=== PATIENT | female | born 1980 | race Caucasian/White ===

== ENCOUNTER 2017-10-09 12:19 | Emergency (ER) | payer OTHER ==
--- NOTE | 2017-10-09 13:27 | ER Document Report ---
ED Medical Screen (RME) - General Chief Complaint: Abdominal Pain Stated Complaint: ABDOMINAL PAIN Time Seen by Provider: 10/09/17 13:25 Notes: nausea, ruq pain since this am. no abd surgeries TRAVEL OUTSIDE OF THE [place] IN LAST 30 DAYS: No - Related Data Allergies/Adverse Reactions: morphine Allergy (Verified 10/09/17 13:06) oseltamivir [From Tamiflu] Allergy (Verified 10/09/17 13:06) gluten Adverse Reaction (Verified 10/09/17 13:06) latex Adverse Reaction (Verified 10/09/17 13:06) Past Medical History - Social History Frequency of alcohol use: Social Drug Abuse: None Pulmonary Medical History: Reports: Hx Asthma Renal/ Medical History: Denies: Hx Peritoneal Dialysis GI Medical History: Reports: Hx Gastroesophageal Reflux Disease Past Surgical History: Reports: Hx Orthopedic Surgery - right ankle. right knee , Hx Tonsillectomy Physical Exam - Vital signs Vitals: Temp Pulse Resp BP Pulse Ox 98.1 F 94 16 143/101 H 98 10/09/17 12:26 10/09/17 12:26 10/09/17 12:26 10/09/17 12:26 10/09/17 12:26 Course - Vital Signs Vital signs: Temp Pulse Resp BP Pulse Ox 98.1 F 94 16 143/101 H 98 10/09/17 12:26 10/09/17 12:26 10/09/17 12:26 10/09/17 12:26 10/09/17 12:26
[2017-10-09 14:33] LABS: APPEARANCE,URINE CLEAR; BILIRUBIN,URINE NEGATIVE (NEGATIVE); COLOR,URINE YELLOW; GLUCOSE, URINE NEGATIVE (NEGATIVE); KETONES,URINE NEGATIVE (NEGATIVE); LEUKOCYTE ESTERASE,URINE NEGATIVE (NEGATIVE); NITRITE,URINE NEGATIVE (NEGATIVE); PROTEIN,URINE NEGATIVE (NEGATIVE); URINE SPECIFIC GRAVITY 1.019; UROBILINOGEN,URINE NEGATIVE mg/dL (<2.0)
[2017-10-09 14:39] LABS: ABSOLUTE EOSINOPHILS # (AUTO) 0.1 10^3/uL (0.0-0.6); ABSOLUTE LYMPHOCYTES (AUTO) 2.7 10^3/uL (0.5-4.7); ABSOLUTE NEUT (AUTO) 7.3 10^3/uL (1.7-8.2); BASOPHILS % (AUTO) 0.4 % (0-2); EOSINOPHILS % (AUTO) 1.1 % (0-6); HEMATOCRIT 39.1 % (36.0-47.0); HEMOGLOBIN 12.5 g/dL (12.0-15.5); LYMPHOCYTES % (AUTO) 24.5 % (13-45); MEAN CORPUSCULAR HEMOGLOBIN 26.5 pg (27.0-33.4); MEAN CORPUSCULAR HGB CONC 32.1 g/dL (32.0-36.0); MEAN CORPUSCULAR VOLUME 83 fl (80-97); MONOCYTES % (AUTO) 8.9 % (3-13); PLATELET COUNT 402 10^3/uL (150-450); RED BLOOD COUNT 4.72 10^6/uL (3.72-5.28); RED CELL DISTRIBUTION WIDTH 15.9 % (11.5-14.0); SEGMENTED NEUTROPHILS % (AUTO) 65.1 % (42-78); TOTAL CELLS COUNTED % (AUTO) 100 %; WHITE BLOOD COUNT 11.2 10^3/uL (4.0-10.5)
[2017-10-09 14:40] LABS: ALANINE AMINOTRANSFERASE 35 U/L (9-52); ALBUMIN 4.1 g/dL (3.5-5.0); ALKALINE PHOSPHATASE 87 U/L (38-126); ANION GAP 11 (5-19); ASPARTATE AMINO TRANSFERASE 20 U/L (14-36); BILIRUBIN,DIRECT 0.4 mg/dL (0.0-0.4); BILIRUBIN,TOTAL 0.4 mg/dL (0.2-1.3); BLOOD UREA NITROGEN 14 mg/dL (7-20); CALCIUM 9.9 mg/dL (8.4-10.2); CARBON DIOXIDE 23 mmol/L (22-30); CHLORIDE 103 mmol/L (98-107); GLUCOSE 78 mg/dL (75-110); LIPASE 47.8 U/L (23-300); SODIUM 137.4 mmol/L (137-145); TOTAL PROTEIN 7.1 g/dL (6.3-8.2)
--- NOTE | 2017-10-09 14:54 | RADIOLOGY REPORT (SQ) ---
EXAM DESCRIPTION: U/S ABDOMEN LIMITED W/O DOP COMPLETED DATE/TIME: 10/09/2017 2:34 pm REASON FOR STUDY: ruq pain COMPARISON: None. TECHNIQUE: Dynamic and static grayscale images acquired of the abdomen and recorded on PACS. Additio nal selected color Doppler and spectral images recorded. LIMITATIONS: None. FINDINGS: PANCREAS: No masses. Visualized pancreatic duct normal caliber. LIVER: No masses. Echotexture normal. LIVER VASCULATURE: Normal directional flow of the main portal vein. GALLBLADDER: No stones. Normal wall thickness. No pericholecystic fluid. ULTRASOUND-DETECTED ISSA'S SIGN: Negative. INTRAHEPATIC DUCTS AND COMMON DUCT: CBD and intrahepatic ducts normal caliber. No filling defects. INFERIOR VENA CAVA: Normal flow. AORTA: No aneurysm. RIGHT KIDNEY: Normal size. Normal echogenicity. No solid or suspicious masses. No hydronephrosis. No calcifications. PERITONEAL AND RIGHT PLEURAL SPACE: No ascites or effusions. OTHER: No other significant findings. IMPRESSION: NORMAL RIGHT UPPER QUADRANT ULTRASOUND. TECHNICAL DOCUMENTATION: JOB ID: [id number] [employer]- All Rights Reserved
--- NOTE | 2017-10-09 15:57 | ER Document Report ---
ED General - General Chief Complaint: Abdominal Pain Stated Complaint: ABDOMINAL PAIN Time Seen by Provider: 10/09/17 13:25 TRAVEL OUTSIDE OF THE [place] IN LAST 30 DAYS: No - HPI Patient complains to provider of: Epigastric pain Notes: Patient coming a 2 day history of abdominal pain. Patient currently is on omeprazole and ranitidine M as medication patient has chronic cough looks like treatment for GERD patient states last EGD was many years ago. States nothing was found on that procedure. Patient currently states able to eat without exacerbation of her pain last night had a beef sandwich without any difficulty. Denies any fevers chills nausea vomiting. - Related Data Allergies/Adverse Reactions: morphine Allergy (Verified 10/09/17 13:06) oseltamivir [From Tamiflu] Allergy (Verified 10/09/17 13:06) gluten Adverse Reaction (Verified 10/09/17 13:06) latex Adverse Reaction (Verified 10/09/17 13:06) Past Medical History - Social History Smoking Status: Never Smoker Frequency of alcohol use: Social Drug Abuse: None Family History: Reviewed & Not Pertinent Patient has suicidal ideation: No Patient has homicidal ideation: No Pulmonary Medical History: Reports: Hx Asthma Renal/ Medical History: Denies: Hx Peritoneal Dialysis GI Medical History: Reports: Hx Gastroesophageal Reflux Disease Past Surgical History: Reports: Hx Orthopedic Surgery - right ankle. right knee , Hx Tonsillectomy Review of Systems - Review of Systems Constitutional: No symptoms reported EENT: No symptoms reported Cardiovascular: No symptoms reported Respiratory: No symptoms reported Gastrointestinal: Abdominal pain Genitourinary: No symptoms reported Female Genitourinary: No symptoms reported Musculoskeletal: No symptoms reported Skin: No symptoms reported Hematologic/Lymphatic: No symptoms reported Neurological/Psychological: No symptoms reported -: Yes All other systems reviewed and negative Physical Exam - Vital signs Vitals: Temp Pulse Resp BP Pulse Ox 98.1 F 94 16 143/101 H 98 10/09/17 12:26 10/09/17 12:26 10/09/17 12:26 10/09/17 12:26 10/09/17 12:26 Interpretation: Normal - General General appearance: Appears well, Alert - HEENT Head: Normocephalic, Atraumatic Eyes: Normal Pupils: PERRL - Respiratory Respiratory status: No respiratory distress Chest status: Nontender Breath sounds: Normal Chest palpation: Normal - Cardiovascular Rhythm: Regular Heart sounds: Normal auscultation Murmur: No - Abdominal Inspection: Normal Distension: No distension Bowel sounds: Normal Tenderness: Nontender Organomegaly: No organomegaly - Back Back: Normal, Nontender - Extremities General upper extremity: Normal inspection, Nontender, Normal color, Normal ROM , Normal temperature General lower extremity: Normal inspection, Nontender, Normal color, Normal ROM , Normal temperature, Normal weight bearing. No: Socorro's sign - Neurological Neuro grossly intact: Yes Cognition: Normal Orientation: AAOx4 Nany Coma Scale Eye Opening: Spontaneous Nany Coma Scale Verbal: Oriented [place] Coma Scale Motor: Obeys Commands Nany Coma Scale Total: 15 Speech: Normal Motor strength normal: LUE, RUE, LLE, RLE Sensory: Normal - Psychological Associated symptoms: Normal affect, Normal mood - Skin Skin Temperature: Warm Skin Moisture: Dry Skin Color: Normal Course - Re-evaluation Re-evalutation: 10/09/17 15:55 The patient presents with abdominal pain without signs of peritonitis or other life-threatening or serious etiology. The patient appears stable for discharge and has been instructed to return immediately if the symptoms worsen in any way , or in 8-12hr if not improved for re-evaluation. The patient has been instructed to return if the symptoms worsen or change in any way. Patient laboratory studies ultrasound are negative. Examination of the abdomen is otherwise benign. States patient she will need to follow-up PCP for GI referral. Patient will be given Carafate Reglan and Ultram for her pain. - Vital Signs Vital signs: Temp Pulse Resp BP Pulse Ox 98.1 F 94 16 143/101 H 98 10/09/17 12:26 10/09/17 12:26 10/09/17 12:26 10/09/17 12:26 10/09/17 12:26 - Laboratory Result Diagrams: 10/09/17 14:05 10/09/17 14:05 Laboratory results interpreted by me: 10/09/17 10/09/17 14:05 14:05 WBC 11.2 H MCH 26.5 L RDW 15.9 H Urine Blood SMALL H Discharge - Discharge Clinical Impression: Epigastric abdominal pain Condition: Good Disposition: HOME, SELF-CARE Instructions: Abdominal Pain ([facility]), Gastroenterology, Gastritis ([facility]) Additional Instructions: Laboratory studies today did not show any significant pathology. I recommend following up with a GI specialist. Please contact her physician for a possible referral to return to the ER symptoms worsen please eat a low-fat bland diet for the next few days. Return to the ER if symptoms worsen. Take medications as prescribed. Prescriptions: Metoclopramide HCl [Reglan] 5 mg PO Q6 #30 tablet Sucralfate [Carafate 1 gm Tablet] 1 gm PO ACHS #120 tablet Tramadol HCl [Ultram] 50 mg PO TID PRN #20 tablet PRN Reason: Referrals: PRICILLA MICHELLE MD [Primary Care Provider] - Follow up in 3-5 days
[2017-10-09 16:35] VITALS: BP 135/87
--- NOTE | 2017-10-10 08:52 | EKG REPORT ---
SEVERITY:- NORMAL ECG - SINUS RHYTHM : Confirmed by: Lauren Barriga 10-Oct-2017 08:52:00
== END 2017-10-09 16:38 | disposition home or self-care (01) ==
LOC: ER 12:19
DX: R10.13 Epigastric pain (principal); R05 Cough; K21.9 Gastro-esophageal reflux disease without esophagitis; Z91.040 Latex allergy status
CPT/HCPCS: 36415; 76705; 80053; 81001; 81025; 83690; 85025; 93005; 93010; 99285

== ENCOUNTER 2020-01-07 15:21 | Emergency (ER) | payer OTHER ==
[2020-01-07 16:13] LABS: ABSOLUTE BASOPHILS # (AUTO) 0.1 10^3/uL (0.0-0.2); ABSOLUTE EOSINOPHILS # (AUTO) 0.1 10^3/uL (0.0-0.6); ABSOLUTE MONOCYTES (AUTO) 1.2 10^3/uL (0.1-1.4); ABSOLUTE NEUT (AUTO) 8.7 10^3/uL (1.7-8.2); BASOPHILS % (AUTO) 0.9 % (0-2); EOSINOPHILS % (AUTO) 0.9 % (0-6); HEMATOCRIT 37.1 % (36.0-47.0); HEMOGLOBIN 12.3 g/dL (12.0-15.5); MEAN CORPUSCULAR HEMOGLOBIN 26.7 pg (27.0-33.4); MEAN CORPUSCULAR HGB CONC 33.2 g/dL (32.0-36.0); MEAN CORPUSCULAR VOLUME 81 fl (80-97); PLATELET COUNT 417 10^3/uL (150-450); RED BLOOD COUNT 4.61 10^6/uL (3.72-5.28); RED CELL DISTRIBUTION WIDTH 15.9 % (11.5-14.0); SEGMENTED NEUTROPHILS % (AUTO) 66.2 % (42-78); TOTAL CELLS COUNTED % (AUTO) 100 %; WHITE BLOOD COUNT 13.2 10^3/uL (4.0-10.5)
[2020-01-07 16:34] LABS: ALBUMIN 4.1 g/dL (3.5-5.0); ALKALINE PHOSPHATASE 69 U/L (38-126); ANION GAP 8 (5-19); ASPARTATE AMINO TRANSFERASE 21 U/L (14-36); BILIRUBIN,TOTAL 0.3 mg/dL (0.2-1.3); BLOOD UREA NITROGEN 11 mg/dL (7-20); CALCIUM 9.6 mg/dL (8.4-10.2); CARBON DIOXIDE 26 mmol/L (22-30); CHLORIDE 100 mmol/L (98-107); GLUCOSE 91 mg/dL (75-110); POTASSIUM 4.3 mmol/L (3.6-5.0); TOTAL PROTEIN 7.1 g/dL (6.3-8.2)
[2020-01-07] MEDS ORDERED: ONDANSETRON HCL INJ/PF 4 MG/2 ML SDV IV ONE (16:59)
[2020-01-07] MEDS ORDERED: DICYCLOMINE HCL INJ 20 MG/2 ML AMPULE IM ONE (16:59)
[2020-01-07] MEDS ORDERED: NORMAL SALINE 1000 ML 1,000 ML IV ONE ×2 (17:00→19:26)
[2020-01-07 18:14] LABS: AMORPHOUS SEDIMENT,URINE TRACE /HPF; APPEARANCE,URINE SLIGHTLY-CLOUDY; BILIRUBIN,URINE NEGATIVE (NEGATIVE); COLOR,URINE YELLOW; GLUCOSE, URINE NEGATIVE (NEGATIVE); KETONES,URINE NEGATIVE (NEGATIVE); LEUKOCYTE ESTERASE,URINE NEGATIVE (NEGATIVE); NITRITE,URINE NEGATIVE (NEGATIVE); PROTEIN,URINE NEGATIVE (NEGATIVE); URINE SPECIFIC GRAVITY 1.014; UROBILINOGEN,URINE NEGATIVE mg/dL (<2.0)
[2020-01-07] MEDS ORDERED: KETOROLAC TROMETHAMINE INJ/PF 30 MG/1 ML SDV IV ONE (19:26)
[2020-01-07] MEDS ORDERED: DICYCLOMINE HCL 20 MG TABLET PO ONE (19:27)
--- NOTE | 2020-01-07 20:23 | RADIOLOGY REPORT (SQ) ---
EXAM DESCRIPTION: CT ABDOMEN PELVIS WITHOUT IV CONTRAST COMPLETED DATE/TME: 01/07/2020 19:27 CLINICAL HISTORY: 39 years Female n/v/d/abd pain COMPARISON: None. TECHNIQUE: Contiguous axial images obtained through the abdomen and pelvis without IV contrast. Reformatted images obtained. This exam was performed according to our department optimization program which includes automated exposure control, adjustment of the mA and/or kv according to patient size and/or use of iterative reconstruction technique. FINDINGS: The lung bases are clear. The liver appears unremarkable. The spleen and pancreas appear unremarkable. No adrenal masses. The kidneys appear unremarkable. No hydronephrosis or definite ureteral calculi. The gallbladder is visualized. No aneurysmal dilatation of the aorta. No bowel obstruction. Unremarkable appendix. IUD in the uterus. No free pelvic fluid. IMPRESSION: No acute intra-abdominal abnormality is identified.
--- NOTE | 2020-01-07 20:46 | ER Document Report ---
Entered by LADARIUS ORTIZ SCRIBE 01/07/20 192 Acting as scribe for:JOSE L RING MD ED GI/ - General Chief Complaint: Abdominal Pain Stated Complaint: ABDOMINAL PAIN Time Seen by Provider: 01/07/20 16:10 Primary Care Provider: PRICILLA MICHELLE MD [Primary Care Provider] - Follow up as needed Information source: Patient Notes: This 39 year old female patient presents to the emergency department today with complaints of abdominal pain. Patient describes the abdominal pain as a cramp. Patient states she had symptoms of nausea, vomiting, and diarrhea the past x1 week. Patient states she has a history of irritable bowel syndrome, and thought this was the reason for her symptoms. TRAVEL OUTSIDE OF THE [place] IN LAST 30 DAYS: No - Related Data Allergies/Adverse Reactions: morphine Allergy (Verified 01/07/20 17:18) oseltamivir [From Tamiflu] Allergy (Verified 01/07/20 17:18) gluten Adverse Reaction (Verified 01/07/20 17:18) latex Adverse Reaction (Verified 01/07/20 17:18) Past Medical History - General Information source: Patient - Social History Smoking Status: Never Smoker Cigarette use (# per day): No Frequency of alcohol use: Social Family History: Reviewed & Not Pertinent Patient has homicidal ideation: No Pulmonary Medical History: Reports: Hx Asthma GI Medical History: Reports: Hx Irritable Bowel Psychiatric Medical History: Reports: Hx Anxiety, Hx Depression Past Surgical History: Reports: Hx Orthopedic Surgery - right ankle. right knee, Hx Tonsillectomy Review of Systems - Review of Systems Constitutional: No symptoms reported EENT: No symptoms reported Cardiovascular: No symptoms reported Respiratory: No symptoms reported Gastrointestinal: See HPI, Abdominal pain, Diarrhea, Nausea, Vomiting Genitourinary: No symptoms reported Female Genitourinary: No symptoms reported Musculoskeletal: No symptoms reported Skin: No symptoms reported Hematologic/Lymphatic: No symptoms reported Neurological/Psychological: No symptoms reported -: Yes All other systems reviewed and negative Physical Exam - Vital signs Vitals: Temp 97.7 F 01/07/20 15:33 - General General appearance: Appears well, Alert - HEENT Head: Normocephalic, Atraumatic Eyes: Normal Pupils: PERRL - Respiratory Respiratory status: No respiratory distress Chest status: Nontender Breath sounds: Normal Chest palpation: Normal - Cardiovascular Rhythm: Regular Heart sounds: Normal auscultation Murmur: No - Abdominal Inspection: Obese Distension: No distension Tenderness: Tender. No: Guarding, Rebound - Extremities General upper extremity: Normal inspection. No: Edema General lower extremity: Normal inspection. No: Edema - Neurological Neuro grossly intact: Yes Cognition: Normal Orientation: AAOx4 - Psychological Associated symptoms: Normal affect, Normal mood - Skin Skin Temperature: Warm Skin Moisture: Dry Skin Color: Normal Course - Re-evaluation Re-evalutation: 01/07/20 20:31 Patient states that she still has cramping abdominal pain diffuse in her abdomen. Patient does have chronic IBS. Patient states she has had nausea vomiting diarrhea for 1 week attributed to her IBS however the persistence of is gotten the retention so she came to the emergency department. - Vital Signs Vital signs: Temp Pulse Resp BP Pulse Ox 98.1 F 80 16 122/68 97 01/07/20 18:58 01/07/20 18:58 01/07/20 18:58 01/07/20 18:58 01/07/20 18:58 01/07/20 20:32 Vital signs stable no acute process afebrile blood pressures 122/60- with a p ulse of 80 - Laboratory Result Diagrams: 01/07/20 16:04 01/07/20 16:04 Laboratory results interpreted by me: 01/07/20 01/07/20 16:04 16:04 WBC 13.2 H MCH 26.7 L RDW 15.9 H Absolute Neuts (auto) 8.7 H Sodium 133.8 L 01/07/20 20:32 Laboratories show a 13,000 white count however no evidence for any infection has been found. Except the fact the patient has had nausea vomiting diarrhea. This is a chronic condition for this patient who has IBS. - Diagnostic Test Radiology reviewed: Image reviewed, Reports reviewed Radiology results interpreted by me: 01/07/20 20:33 CT scan of abdomen without oral or IV contrast shows a normal-appearing abdomen no acute process noted no intra-abdominal pathology found. Discharge - Discharge Clinical Impression: Irritable bowel syndrome, Gastroenteritis Condition: Stable Disposition: HOME, SELF-CARE Instructions: Antispasmodics ([facility]), Antinausea Medication ([facility]), Gastroenteritis (adult) ([facility]), Vomiting ([facility]) Prescriptions: Dicyclomine HCl [Bentyl 20 mg Tablet] 20 mg PO QID PRN 5 Days #20 tablet PRN Reason: Abdominal Cramping Metoclopramide HCl [Reglan 10 mg Tablet] 1 tab PO Q6H PRN 5 Days #25 tablet PRN Reason: Referrals: PRICILLA MICHELLE MD [Primary Care Provider] - Follow up as needed I personally performed the services described in the documentation, reviewed and edited the documentation which was dictated to the scribe in my presence, and it accurately records my words and actions.
[2020-01-07 21:00] VITALS: BP 142/92
== END 2020-01-07 21:05 | disposition home or self-care (01) ==
LOC: ER 15:21
DX: K58.0 Irritable bowel syndrome with diarrhea (principal); R11.2 Nausea with vomiting, unspecified; R10.84 Generalized abdominal pain; J45.909 Unspecified asthma, uncomplicated; Z88.6 Allergy status to analgesic agent; Z88.5 Allergy status to narcotic agent; Z88.3 Allergy status to other anti-infective agents
CPT/HCPCS: 99284; 96361; 96374; 96375; 36415; 83690; 85025; 80053; 81001; 74176; J0500; J1885; J2405; J7030